=== PATIENT | male | born 1990 | race Caucasian/White ===

== ENCOUNTER 2016-10-02 20:09 | Emergency (ER) | payer OTHER ==
[~2016-10-02] VITALS: Ht 177.8 cm; Wt 70.3 kg
[~2016-10-02 20:09] MED LIST: AMOXICILLIN 50500 M1 PO; PERCOCET 5-3251 EACH PO; TRANSDERM-SCOP1 EACH; ZOFRAN4 MG PO
[2016-10-02] MEDS ORDERED: FOCALIN10 MG PO (20:45)
[2016-10-02 20:46] LABS: HEMATOCRIT 36.2 % (42.0-52.0); HEMOGLOBIN 11.5 gm/dL (14.0-18.0); MCH 19.8 pg (26.0-34.0); MCHC 31.9 % (28.0-37.0); MCV 62.2 fL (80.0-100.0); PLATELET COUNT 300 thou/uL (150-400); RBC 5.82 mil/uL (4.50-6.00); RDW 15.9 % (10.5-14.5); WBC 11.7 thou/uL (4.0-11.0)
[2016-10-02] MEDS ORDERED: SENOKOT-S1 TA1 PO (20:46)
[2016-10-02] MEDS ORDERED: NEURONTIN 300300 M1 PO (20:46)
[2016-10-02 20:47] LABS: MANUAL DIFF YES
[2016-10-02 20:53] LABS: CALCIUM 9.6 mg/dL (8.5-10.1); CREATININE 1.1 mg/dL (0.6-1.3); POTASSIUM 3.8 mmol/L (3.5-5.1)
[2016-10-02 21:01] LABS: TOTAL BILIRUBIN 0.6 mg/dL (<0.1-1.0); TOTAL PROTEIN 7.9 g/dL (6.4-8.2)
[2016-10-02 21:10] LABS: URINE BILIRUBIN NEGATIVE (Negative); URINE BLOOD TRACE (Negative); URINE GLUCOSE-RANDOM* NEGATIVE (Negative); URINE KETONES NEGATIVE (Negative); URINE LEUKOCYTES-REFLEX 2+ (Negative); URINE PROTEIN (DIPSTICK) NEGATIVE (Negative); URINE SPECIFIC GRAVITY <= 1.005 (1.003-1.035); URINE UROBILINOGEN 0.2 E.U./dl (0.2-1.0)
[2016-10-02 21:15] LABS: ABSOLUTE NEUTROPHILS 6.6 thou/uL (1.4-8.2); NUCLEATED RBCS 1 /100WBC; TOTAL CELL COUNT 100
[2016-10-02 21:16] LABS: ANISOCYTOSIS 2+; HYPOCHROMASIA 2+; MICROCYTES 2+; POLYCHROMASIA OCCASIONAL; TARGET CELLS 1+
[2016-10-02 21:17] LABS: URINE COLOR STRAW
[2016-10-02 21:17] LABS: MACROCYTES 1+
[2016-10-02 21:27] LABS: CASTS None Seen /LPF (None Seen); CRYSTALS None Seen /LPF (None Seen); SQUAMOUS 0-3 Few /LPF (0-3); URINE RBC 0-2 Rare /HPF (0-2)
[2016-10-02] MEDS ORDERED: LEVSIN0.125 MG PO (21:38)
[2016-10-02] MEDS ORDERED: NORCO 5-325 TA1 EACH PO (21:38)
[2016-10-02 21:52] VITALS: BP 122/79
== END 2016-10-02 21:57 | disposition home or self-care (01) ==
LOC: ER 20:09
PROVIDERS: Emergency Medicine
DX: N39.0 Urinary tract infection, site not specified (principal); R31.9 Hematuria, unspecified; D56.1 Beta thalassemia; N20.0 Calculus of kidney; Z90.89 Acquired absence of other organs

== ENCOUNTER → 2020-03-12 | Outpatient (CLI) | payer OTHER ==
[~2020-03-12] MED LIST changes: +FOCALIN10 MG PO; +LEVSIN0.125 MG PO; +NEURONTIN 300300 M1 PO; +NORCO 5-325 TA1 EACH PO; +SENOKOT-S1 TA1 PO
== END ==
LOC: LAB 11:01
PROVIDERS: ATTEND Internal Medicine Cardiovascular Disease
DX: Z01.818 Encounter for other preprocedural examination (principal); Z11.59 Encounter for screening for other viral diseases